=== PATIENT | female | born 1965 | race Two or more races ===

== ENCOUNTER → 2017-09-09 | Outpatient (CLI) | payer OTHER | END | disposition home or self-care (01) | LOC: MAMO-SONO 08:15 → SONOGRAMA 09:15 | DX: R10.84 Generalized abdominal pain (principal); M25.512 Pain in left shoulder ==

== ENCOUNTER → 2017-09-09 | Outpatient (CLI) | payer OTHER | END | disposition home or self-care (01) | LOC: RAD 09:34 | DX: M79.641 Pain in right hand (principal); M54.5 Low back pain ==

== ENCOUNTER 2017-10-22 14:01 | Outpatient (CLI) | payer OTHER | END 2017-10-22 15:00 | disposition home or self-care (01) | LOC: NUCLEAR 14:01 | DX: M81.0 Age-related osteoporosis without current pathological fracture (principal) ==

== ENCOUNTER 2017-10-22 14:20 | Outpatient (CLI) | payer OTHER | END 2017-10-22 15:20 | disposition home or self-care (01) | LOC: MAMO-SONO 14:20 | DX: Z12.31 Encounter for screening mammogram for malignant neoplasm of breast (principal); N60.11 Diffuse cystic mastopathy of right breast; N60.12 Diffuse cystic mastopathy of left breast ==

== ENCOUNTER 2017-12-04 09:31 | Emergency (ER) | payer OTHER ==
[~2017-12-04] VITALS: Ht 154.9 cm; Wt 61.2 kg
== END 2017-12-04 16:39 | disposition home or self-care (01) ==
LOC: ER 09:31
DX: K52.9 Noninfective gastroenteritis and colitis, unspecified (principal)

== ENCOUNTER 2018-02-15 10:36 | Emergency (ER) | payer OTHER ==
[~2018-02-15] VITALS: Ht 157.5 cm; Wt 61.2 kg
[2018-02-15] MEDS ORDERED: ZITHROMAX200 MG PO (12:16)
== END 2018-02-15 12:23 | disposition home or self-care (01) ==
LOC: ER 10:36
DX: J06.9 Acute upper respiratory infection, unspecified (principal)

== ENCOUNTER 2018-02-26 09:53 | Emergency (ER) | payer OTHER ==
[~2018-02-26] VITALS: Ht 160 cm; Wt 63.5 kg
[~2018-02-26 09:53] MED LIST: ZITHROMAX200 MG PO
[2018-02-26] MEDS ORDERED: NEURONTIN600 MG PO (10:07)
== END 2018-02-26 14:48 | disposition home or self-care (01) ==
LOC: ER 09:53
DX: R42 Dizziness and giddiness (principal)

== ENCOUNTER 2018-03-24 10:59 | Outpatient (CLI) | payer OTHER ==
[~2018-03-24 10:59] MED LIST changes: +NEURONTIN600 MG PO
== END 2018-03-24 11:08 | disposition home or self-care (01) ==
LOC: RAD 10:59
DX: R55 Syncope and collapse (principal); R06.02 Shortness of breath

== ENCOUNTER 2019-04-05 00:08 | Emergency (ER) | payer OTHER ==
[~2019-04-05] VITALS: Ht 154.9 cm; Wt 61.2 kg
[2019-04-05] MEDS ORDERED: PROMETH-CODEIN 65 ML PO (02:43)
[2019-04-05] MEDS ORDERED: FLONASE16 GM TOP (02:43)
== END 2019-04-05 04:42 | disposition home or self-care (01) ==
LOC: ER 00:08
DX: J32.8 Other chronic sinusitis (principal)

== ENCOUNTER 2019-04-06 10:43 | Outpatient (CLI) | payer OTHER ==
[~2019-04-06] VITALS: Ht 154.9 cm; Wt 61.2 kg
[~2019-04-06 10:43] MED LIST changes: +FLONASE16 GM TOP; +PROMETH-CODEIN 65 ML PO
== END 2019-04-06 11:00 | disposition home or self-care (01) ==
LOC: OFIC 805 10:43
DX: K21.9 Gastro-esophageal reflux disease without esophagitis (principal); J31.0 Chronic rhinitis; H93.13 Tinnitus, bilateral

== ENCOUNTER 2019-05-06 19:43 | Emergency (ER) | payer OTHER ==
[~2019-05-06] VITALS: Ht 152.4 cm; Wt 61.2 kg
== END 2019-05-06 22:44 | disposition home or self-care (01) ==
LOC: ER 19:43
DX: N39.0 Urinary tract infection, site not specified (principal)

== ENCOUNTER → 2020-01-24 | Emergency (ER) | payer OTHER ==
[~2020-01-24] VITALS: Ht 152.4 cm; Wt 61.2 kg
[~2020-01-24] MED LIST changes: +SINGULAIR10 MG; +ZYNCOF 20-400120 ML PO
== END | disposition home or self-care (01) ==
LOC: ER 21:31
DX: J01.90 Acute sinusitis, unspecified (principal); R53.81 Other malaise; Z03.818 Encounter for observation for suspected exposure to other biological agents ruled out

== ENCOUNTER 2020-12-05 10:13 | Emergency (ER) | payer OTHER ==
[~2020-12-05] VITALS: Ht 152.4 cm; Wt 62.6 kg
[2020-12-05] MEDS ORDERED: ZITHROMAX200 MG PO (12:46)
== END 2020-12-05 12:50 | disposition home or self-care (01) ==
LOC: ER 10:13
DX: R00.2 Palpitations (principal); F06.4 Anxiety disorder due to known physiological condition

== ENCOUNTER 2021-08-16 10:33 | Emergency (ER) | payer OTHER ==
[~2021-08-16] VITALS: Ht 154.9 cm; Wt 65.8 kg
[2021-08-16] MEDS ORDERED: NORVASC2.5 MG PO (10:43)
[2021-08-16] MEDS ORDERED: ATORVASTATIN CA40 MG PO (10:43)
[2021-08-16] MEDS ORDERED: ST. JOSEPH ASPI81 M2 PO (10:43)
[2021-08-16] MEDS ORDERED: ALL DAY ALLERGY10 M3 PO (10:44)
[2021-08-16] MEDS ORDERED: OMEPRAZOLE40 MG PO (10:44)
[2021-08-16] MEDS ORDERED: PEPCID AC20 MG PO (10:45)
== END 2021-08-16 11:55 | disposition home or self-care (01) ==
LOC: ER 10:33
DX: S01.01XA Laceration without foreign body of scalp, initial encounter (principal); W22.8XXA Striking against or struck by other objects, initial encounter; Y93.E9 Activity, other interior property and clothing maintenance; Y92.018 Other place in single-family (private) house as the place of occurrence of the external cause; I10 Essential (primary) hypertension; Z91.040 Latex allergy status

== ENCOUNTER 2021-08-19 13:18 | Outpatient (CLI) | payer OTHER ==
[~2021-08-19 13:18] MED LIST changes: +ALL DAY ALLERGY10 M3 PO; +ATORVASTATIN CA40 MG PO; +NORVASC2.5 MG PO; +OMEPRAZOLE40 MG PO; +PEPCID AC20 MG PO; +ST. JOSEPH ASPI81 M2 PO
== END 2021-08-19 14:27 | disposition home or self-care (01) ==
LOC: LAB 13:18
PROVIDERS: ATTEND Internal Medicine Pulmonary Disease
DX: R06.02 Shortness of breath (principal); R50.9 Fever, unspecified; Z20.822 Contact with and (suspected) exposure to COVID-19; R05.9 Cough, unspecified

== ENCOUNTER 2021-08-26 11:13 | Emergency (ER) | payer OTHER ==
[~2021-08-26] VITALS: Ht 154.9 cm; Wt 62.6 kg
== END 2021-08-26 13:03 | disposition home or self-care (01) ==
LOC: ER 11:13
DX: Z48.02 Encounter for removal of sutures (principal)

== ENCOUNTER 2021-09-07 12:43 | Emergency (ER) | payer OTHER ==
[~2021-09-07] VITALS: Ht 160 cm; Wt 70.8 kg
== END 2021-09-07 22:46 | disposition home or self-care (01) ==
LOC: ER 12:43
DX: R42 Dizziness and giddiness (principal); F41.9 Anxiety disorder, unspecified; Z20.822 Contact with and (suspected) exposure to COVID-19

== ENCOUNTER 2023-09-18 13:27 | Emergency (ER) | payer OTHER ==
[~2023-09-18] VITALS: Ht 154.9 cm; Wt 65.8 kg
[2023-09-18] MEDS ORDERED: ZOLOFT100 MG PO (13:43)
[2023-09-18] MEDS ORDERED: MULTI VITAMIN1 EACH PO (13:51)
[2023-09-18] MEDS ORDERED: PRILOSEC OTC20 MG PO (13:51)
[2023-09-18] MEDS ORDERED: ZYRTEC10 M3 PO (13:52)
[2023-09-18] MEDS ORDERED: CLONAZEPAM0.5 M1 PO (13:52)
[2023-09-18] MEDS ORDERED: FAMOTIDINE/PF 20 MG/2 ML VIAL IV ONE (16:15)
[2023-09-18] MEDS ORDERED: ONDANSETRON HCL 2 MG/ML VIAL IV ONE (16:15)
[2023-09-18 17:04] LABS: HEMATOCRIT 39.9 % (36.0-45.00); HEMOGLOBIN 13.6 g/dL (12.0-15.00); MEAN CELL VOLUME 92.8 fL (80.00-100.00); MEAN CORPUSCULAR HEMOGLOBIN 31.7 pg (27.00-32.0); MEAN CORPUSCULAR HGB CONC 34.1 g/dl (32.0-36.0); PLATELET COUNT 224 K/uL (150-450); RED CELL DISTRIBUTION WIDTH 14.3 % (11.5-14.5)
[2023-09-18 17:09] LABS: PH,URINE 5.5 (5.0-8.0); URINE APPEARANCE Clear; URINE BILIRRUBIN Negative (NEGATIVE); URINE BLOOD Negative; URINE COLOR Yellow; URINE GLUCOSE Negative (NEGATIVE); URINE LEUKOCYTE Negative; URINE NITRATE Negative; URINE PROTEIN Negative (NEGATIVE); URINE UROBILINOGEN 0.2 E.U./dl
[2023-09-18 17:10] LABS: URINE BACTERIA 322.4 uL (0.0-1933); URINE EPITHELIAL CELLS 14.5 uL (0.0-38.8); URINE WBC 5.8 uL (0.0-23.2)
[2023-09-18 17:21] LABS: URINE RBC 1.4 uL (0.0-20.8)
[2023-09-18 17:22] LABS: CALCIUM 9.6 mg/dL (8.5-10.1); CREATININE SERUM 0.78 mg/dL (0.55-1.02); GFR 75.85; POTASSIUM 4.18 mEq/L (3.5-5.1)
== END 2023-09-18 18:48 | disposition home or self-care (01) ==
LOC: ER 13:27
PROVIDERS: Nurse Practitioner Family
DX: R07.89 Other chest pain (principal); F41.9 Anxiety disorder, unspecified; I10 Essential (primary) hypertension; E11.9 Type 2 diabetes mellitus without complications; Z91.040 Latex allergy status

== ENCOUNTER 2025-02-08 11:57 | Emergency (ER) | payer OTHER ==
[~2025-02-08] VITALS: Ht 152.4 cm; Wt 73.5 kg
[~2025-02-08 11:57] MED LIST changes: +CLONAZEPAM0.5 M1 PO; +ISOSORBIDE MONO60 MG; +MULTI VITAMIN1 EACH PO; +PRILOSEC OTC20 MG PO; +ZOLOFT100 MG PO; +ZYRTEC10 M3 PO
[2025-02-08 12:47] VITALS: BP 130/85; O2SAT 98
[2025-02-08] MEDS ORDERED: KETOROLAC TROMETHAMINE 60 MG VIAL IM ONE ×2 (13:14→13:15)
[2025-02-08 13:43] LABS: BASO % 0.1 % (0.1-1.2); EOS # 0.04 (0.04-0.54); EOS % 0.6 % (0.7-7.0); LYMPH # 1.37 (1.18-3.74); LYMPH % 19.4 % (19.3-53.1); MEAN PLATELET VOLUME 10.70 fl (9.4-12.4); MONO # 0.59 (0.24-0.82); MONO % 8.3 % (4.7-12.5); NEUT # 5.06 (1.56-6.13); NEUT % 71.5 % (34.0-71.1); RED CELL DISTRIBUTION WIDTH 13.2 % (11.6-14.4)
[2025-02-08 14:06] LABS: INR 1.05
[2025-02-08 14:08] LABS: ALT/SGPT 21.0 U/L (12-78); AST/SGOT 24.0 U/L (15-37); BILIRUBIN TOTAL 0.72 mg/dL (0.3-1.2); BUN CREA RATIO 7.0 (7.0-25.0); CREATININE SERUM 0.7 mg/dL (0.55-1.02); GFR 85.65; GLOBULINA 4.2 G/DL (2.4-3.5); GLUCOSE FASTING 108.0 mg/dL (65-100); OSMOLALITY SERUM 275.0 MOSM/KG (275-295)
[2025-02-08 14:11] LABS: URINE APPEARANCE Clear; URINE BILIRRUBIN Negative (NEGATIVE); URINE BLOOD Negative; URINE COLOR Yellow; URINE GLUCOSE Negative (NEGATIVE); URINE KETONE Negative (NEGATIVE); URINE LEUKOCYTE Small; URINE NITRATE Negative; URINE PROTEIN Negative (NEGATIVE); URINE UROBILINOGEN 1.0 E.U./dl
[2025-02-08 14:14] LABS: URINE BACTERIA 92.3 uL (0.0-1933); URINE EPITHELIAL CELLS 8.9 uL (0.0-38.8); URINE RBC 8.5 uL (0.0-20.8); URINE WBC 15.3 uL (0.0-23.2)
[2025-02-08 14:24] LABS: URINE CAST 0.00 uL (0.0-1.40)
[2025-02-08] MEDS ORDERED: 0.9 % SODIUM CHLORIDE 1,000 ML IV ONE (15:15)
[2025-02-08] MEDS ORDERED: DIPHENHYDRAMINE HCL 50 MG/ML VIAL 1ML IV ONE (15:15)
[2025-02-08] MEDS ORDERED: ONDANSETRON HCL 2 MG/ML VIAL IV ONE (15:15)
[2025-02-08] MEDS ORDERED: DIPHENHYDRAMINE HCL 50 MG/ML VIAL 1ML ONE (15:16)
[2025-02-08] MEDS ORDERED: ONDANSETRON HCL 2 MG/ML VIAL ONE (15:17)
[2025-02-08] MEDS ORDERED: PROBIOTIC1 EAC2 PO (16:01)
[2025-02-08] MEDS ORDERED: PEPCID AC20 MG PO (16:01)
[2025-02-08] MEDS ORDERED: CIPRO500 MG PO (16:01)
[2025-02-08] MEDS ORDERED: METRONIDAZOLE500 MG PO (16:01)
== END 2025-02-08 16:11 | disposition home or self-care (01) ==
LOC: ER 11:57
PROVIDERS: General Practice
DX: R10.9 Unspecified abdominal pain (principal); R19.7 Diarrhea, unspecified; I10 Essential (primary) hypertension; Z91.040 Latex allergy status

== ENCOUNTER 2025-02-09 08:46 | Emergency (ER) | payer OTHER ==
[~2025-02-09] VITALS: Ht 152.4 cm; Wt 73.5 kg
[~2025-02-09 08:46] MED LIST changes: +CIPRO500 MG PO; +METRONIDAZOLE500 MG PO; +PROBIOTIC1 EAC2 PO
== END 2025-02-09 09:34 | disposition home or self-care (01) ==
LOC: ER 08:48
DX: F41.9 Anxiety disorder, unspecified (principal); Z91.040 Latex allergy status; Z87.09 Personal history of other diseases of the respiratory system